=== PATIENT | male | born 1970 ===

== ENCOUNTER 2018-08-29 08:33 | Inpatient (IN) | payer MEDICARE, OTHER ==
--- NOTE | 2018-08-29 08:37 | C.PDOC ---
History Of Present Illness 47 y/o male with PMH of substance abuse, anxiety, chronic pain, presents to the ED c/o worsening anxiety x 2 weeks. Pt does not have a psychiatrist and does not take any medication for his anxiety. Pt is seeking admission today. Pt is tearful on interview, states he has been having daily panic attack secondary to feeling overwhelmed and having a lack of support at home. Last use of heroin, 2 bags snorted yesterday, none today. Currently on a methadone program, last dose yesterday 35mg, supposed to receive 30mg today, but presented to ED instead because he states his doctor is "reducing his dose too quickly and he does not want to use". Pt does not have a pain management doctor. Denies SI, HI, hallucinations, alcohol use, fever, chills, abdominal pain, N/V/D, bowel/bladder incontinence, numbness, paresthesias, weakness, headache, dizziness, vision changes, chest pain, SOB, or any other associated symptoms. Time Seen by Provider: 08/29/18 08:33 Chief Complaint (Nursing): Anxiety Past Medical History Reviewed: Historical Data, Nursing Documentation, Vital Signs - Medical History PMH: Anxiety, Arthritis, Asthma, Back Problems, Depression, Hepatitis (As per pt, hx of Hep C.) Denies: Diabetes, HIV, HTN, Seizures, Sexually Transmitted Disease Surgical History: Back Surgery - [facility] Procedures INDIVID PSYCHOTHERAP NEC (01/02/14) LARYGNOSCOPY AND OTH TRACHEOSCOPY (05/18/13) OTHER GROUP THERAPY (01/02/14) OTHER SKIN & SUBQ I D (05/18/13) PHYSICAL THERAPY NEC (08/04/14) PSYCHIA INTERV/EVAL NEC (03/27/14) Family History: States: Unknown Family Hx - Social History Hx Tobacco Use: Yes Hx Alcohol Use: Yes Hx Substance Use: Yes - Immunization History Hx Tetanus Toxoid Vaccination: Yes Hx Influenza Vaccination: Yes Hx Pneumococcal Vaccination: Yes Review Of Systems Constitutional: Negative for: Fever, Chills Eyes: Negative for: Vision Change ENT: Negative for: Nose Congestion Cardiovascular: Negative for: Chest Pain, Palpitations, Light Headedness Respiratory: Negative for: Cough, Shortness of Breath Gastrointestinal: Negative for: Nausea, Vomiting, Abdominal Pain, Diarrhea, Constipation Musculoskeletal: Positive for: Neck Pain (chronic), Back Pain (chronic), Leg Pain (chronic bilateral knee pain) Skin: Negative for: Rash, Bruising Neurological: Negative for: Weakness, Numbness, Headache, Dizziness Psych: Positive for: Anxiety. Negative for: Depression, Psychosis, Suicidal ideation Physical Exam - Physical Exam Appears: Non-toxic, In Acute Distress, Agitated Skin: Normal Color, Warm, Dry Head: Atraumatic, Normacephalic Eye(s): bilateral: Normal Inspection, PERRL, EOMI Nose: Normal Oral Mucosa: Moist Neck: Normal, Normal ROM, No Midline Cervical Tenderness, No Paracervical Tenderness, Supple Cardiovascular: Rhythm Regular Respiratory: Normal Breath Sounds Gastrointestinal/Abdominal: Soft, No Tenderness Back: Normal Inspection, No Vertebral Tenderness, No Muscle Spasm, No Paraspinal Tenderness Extremity: Normal ROM, Capillary Refill (<2s), No Deformity, No Swelling Extremity: Bilateral: Atraumatic, No Pedal Edema, Normal Color And Temperature, Normal ROM Pulses: Left Radial: Normal, Right Radial: Normal Neurological/Psych: Oriented x3, Normal Speech, Normal Motor, Normal Sensation Gait: Steady (with cane) ED Course And Treatment - Laboratory Results Result Diagrams: 08/29/18 09:54 08/29/18 09:54 Medical Decision Making Medical Decision Making: Initial Plan: * Bloodwork * Alcohol, acetaminophen, and salicylate levels * UA * UDS * Crisis Eval 1045 Labwork reviewed, no significant findings. Patient is medically clear for psychiatric evaluation. 1225 Advised by crisis that patient is to be admitted to the psychiatric floor under Dr. Stewart with the diagnosis of major depressive disorder. Patient made aware of change in disposition. Resting comfortably in stretcher on phone with stable vital signs at this time. Disposition - Disposition Disposition: HOSPITALIZED Disposition Time: 12:30 Condition: GOOD - Clinical Impression Clinical Impression: Major depressive disorder
[2018-08-29 08:38] VITALS: BMI 31.3
[2018-08-29 10:00] LABS: BASO # 0.1 K/uL (0.0-0.2); BASO % 0.7 % (0.0-2.0); EOS # 0.1 K/uL (0.0-0.7); EOS % 0.9 % (0.0-4.0); HEMOGLOBIN 14.4 g/dL (12.0-18.0); LYMPH # 1.9 K/uL (1.0-4.3); MEAN CELL VOLUME 93.8 fL (80.0-94.0); MEAN CORPUSCULAR HGB CONC 34.1 g/dL (33.0-37.0); MEAN PLATELET VOLUME 8.9 fL (7.2-11.7); MONO # 0.6 K/uL (0.0-0.8); MONO % 6.8 % (0.0-10.0); NEUT # 6.7 K/uL (1.8-7.0); NEUT % 71.6 % (50.0-75.0); RBC 4.49 Mil/uL (4.40-5.90); RED CELL DISTRIBUTION WIDTH 13.1 % (11.5-14.5); WHITE BLOOD COUNT 9.4 K/uL (4.8-10.8)
[2018-08-29 10:01] LABS: SQUAMOUS EPITHIAL < 1 /hpf (0-5); URINE BILIRUBIN NEGATIVE (NEGATIVE); URINE BLOOD NEGATIVE (NEGATIVE); URINE CLARITY Clear (Clear); URINE COLOR Yellow (YELLOW); URINE GLUCOSE (UA) NORMAL (Normal); URINE LEUKOCYTE ESTERASE NEG Leu/uL (Negative); URINE PROTEIN NEGATIVE (NEGATIVE); URINE UROBILINOGEN NORMAL mg/dL (0.2-1.0)
[2018-08-29 10:11] LABS: ACETAMINOPHEN < 10.0 ug/mL (10.0-30.0); SALICYLATE < 1.0 mg/dL 1
[2018-08-29 10:24] LABS: BARBITURATES, UR NEGATIVE (NEGATIVE); PHENCYCLIDINE, UR NEGATIVE (NEGATIVE)
[2018-08-29 10:43] LABS: ALB/GLOB RATIO 1.5 (1.0-2.1); ALBUMIN 5.1 g/dL (3.5-5.0); AST/SGOT 34 U/L (17-59); BLOOD UREA NITROGEN 11 mg/dL (9-20); CALCIUM 9.9 mg/dl (8.6-10.4); GFR NON-AFRICAN AMERICAN > 60
[2018-08-29 10:44] LABS: ALT/SGPT 15 U/L (21-72); BENZODIAZEPINES, UR POSITIVE (NEGATIVE); OPIATES, UR POSITIVE (NEGATIVE)
--- NOTE | 2018-08-29 14:53 | PCM.BM ---
<Katie Knutson - Last Filed: 08/29/18 14:50> Treatment Plan Problems - Problems identified on initial assessmt Self Care Deficit Date Initiated: 08/29/18 Time Initiated: 14:52 Assessment reference: NA Status: Active Altered Sleep Patterns Date Initiated: 08/29/18 Time Initiated: 14:52 Assessment reference: NA Status: Active Medication Nonadherence Date Initiated: 08/29/18 Time Initiated: 14:52 Assessment reference: NA Status: Active Treatment assets and liabiliti Patient Assests: adapts well, cooperative, educated, ADL independent, negotiates basic needs, cognitively intact Patient Liabilities: live alone (Lives with friend), substance abuse (Methadone, Opiates, THC), medical problems (Back pain, and Arthritis) - Milieu Protocol Maintain good personal hygiene: daily Encourage regular showers, daily Remind patient to perform daily oral care, daily Assist patient to perform ADL's (Self care) Conduct patient checks and document Observation sheet: Q15 minutes (Safety) Maintain personal safety: every shift Educate patient to report safety concerns to staff, every shift Monitor environment for contraband/sharps Medication safety: Monitor for expected outcome, potential side effects: every shift, Assess barriers to learning: every shift, Assess readiness for medication education: every shift <Modesta Stewart - Last Filed: 08/31/18 10:51> - Diagnosis (1) Bipolar disorder Status: Acute Interventions: 08/31/18 10:50 * Assess/adjust medications daily and /or as needed * See patient on an individual basis 7x/week to assess level of manic behaviors and stability * Discuss risks, benefits, side effects and alternatives of medications * (2) Opioid use disorder, severe, dependence Status: Acute Interventions: 08/31/18 10:51 * Assess 7x/week regarding severity of withdrawal * Educate regarding risks, benefits, side effects and alternatives of medications * Use Motivational Interviewing for abstinence * Use CBT for relapse prevention * Medication management for withdrawal symptoms * Encourage medication assisted treatment * <Jazz Fabian - Last Filed: 08/31/18 14:15> Family Contact Family involvement: Patient does not wish Family/SO involvement Family contact: Patient declines to allow family contact at present - Goals for Treatment Patient goals for treatment: "I want to got to [facility]." Discharge/Continuing Care - Education Needs Education Needs: Patient Medication, Patient Diagnosis/Disease Process, Patient Coping Skills, Patient Placement options, Patient Community resources - Discharge Discharge Criteria: Free of Suicidal thoughts, Free of agitation, Normal sleep pattern, Ability to care for self, No longer exhibiting s/s of withdrawal, Reduction of target symptoms Discharge to:: Home, With Family - Treatment Team Participation Discussed with Family/SO: No Was Patient/Family/SO present at Treatment Team Meeting: Yes
--- NOTE | 2018-08-29 15:14 | PCM.PSYCH ---
Initial Psychiatric Evaluation - Initial Psychiatric Evaluation Type of Admission: Voluntary Legal Status: Capacity Chief Complaint (in patient's own words): I was feeling anxious depressed and suicidal.' History of Present Illness and Precipitating Events: Patient is a 47-year-old male that is , currently homeless, has 5 children ages 29, 28, 27,17 and 10. The 17 and 10-year-old are under the care of their respective mothers. He is currently receiving disability. Patient states that he is very anxious, depressed and suicidal. Patient has a history of anxiety and insomnia that he states have been getting worse lately because he is under a lot of stress. Patient is tearful when interviewing, stating that he has been having daily panic attacks secondary to feeling overwhelmed and having a lack of support from his family. He states that he does not have a psychiatrist and does not take any medication for his anxiety. He also states that he suffers from chronic pain and was seeing a pain management doctor in [place], where he frequently visits and lives for long periods of time. He reports having multiple orthopedic surgeries with rods, plates, and screws inserted. Patient reports that his condition makes him very anxious and restless when he is in pain. Patient has a 20-year history of heroin use. He states that he goes to [facility] for methadone and was started off at 140 mg and is being tapered down 5 mg a day. Last dose yesterday was 35 mg. He also sniffed 2 bags of heroin yesterday stating that his doctor was "reducing his dose too quickly which made him supplement with heroin. He was supposed to receive 30 mg today but states that he did not receive it. He presents to [facility] ED because he is afraid of using heroin again and does not want to relapse. He denies heroin use today. Patient also states that he smokes marijuana every day because it helps with his chronic pain and insomnia. He reports depressed mood, feelings of hopelessness, helplessness and worthlessness. He reports poor sleep and poor appetite. He reports at times irritability and agitation agitation because of chronic pain. However he denies any auditory hallucinations or any paranoia. He also reports withdrawal symptoms from heroin including nausea, vomiting, shakes, headache, cramps and joint pains. Past psychiatric history: Anxiety, insomnia Family Psych History: unknown PMHx: Hep. C, osteoarthritis Meds: methadone Current Medications: Active Medications Generic Name Dose Route Start Last Admin Trade Name Freq PRN Reason Stop Dose Admin Benztropine Mesylate 2 mg 08/29/18 13:03 Cogentin PO Q6 PRN Extra Pyramidal Symptoms Haloperidol 5 mg 08/29/18 13:12 Haldol PO Q8 PRN Moderate Agitation Hydroxyzine HCl 25 mg 08/29/18 13:12 Atarax PO Q6 PRN Anxiety Lorazepam 2 mg 08/29/18 12:58 Ativan PO Q8H PRN Severe Agitation Pneumococcal Polyvalent Vaccine 0.5 ml 08/31/18 10:00 Pneumovax 23 Vaccine IM 08/31/18 10:01 .ONCE ONE Trazodone HCl 50 mg 08/29/18 22:00 Desyrel PO HS JOHN Past Psychiatric History - Past Psychiatric History Previous Treatment History: Inpatient Pertinent Medical Hx (Current Medical&Sleep Prob, Allergies): Allergies Allergy/AdvReac Type Severity Reaction Status Date / Time crab AdvReac SHORTNESS Verified 08/29/18 08:38 OF BREATH No Known Home Med 08/29/18 Review of Systems - Review of Systems All systems: reviewed and no additional remarkable complaints except - Psychiatric Psychiatric: Anxiety, Irritability, Suicidal Ideation Mental Status Examination - Personal Presentation Personal Presentation: Looks stated age - Affect Affect: Constricted, Depressed - Motor Activity Motor Activity: Psychomotor Retardation - Reliability in Providing Information Reliability in Providing Information: Fair - Speech Speech: Organized - Mood Mood: Depressed, Anxious - Formal Thought Process Formal Thought Process: No Impairment - Obsessions/Compulsions Obsessions: No Compulsions: No - Cognitive Functions Orientation: Person, Place, Situation, Time Sensorium: Alert Attention/Concentration: Attentive Abstract Thinking: [place] Estimate of Intelligence: Below average Judgement: Imparied, as evidence by: Poor judgement, Imparied, as evidence by: Lack of insight into illness - Risk Risk: Suicidal, Withdrawal, Diminished functioning - Limitations Limitations: Living alone DSM 5 DX - DSM 5 DSM 5 Diagnosis: Bipolar depressed severe with out psychotic features Opioid use disorder severe Opioid withdrawal Cannabis use disorder moderate - Recommended/Plan of Treatment Treatment Recommendations and Plan of Treatment: Bipolar depressed severe with out psychotic features Opioid use disorder severe Opioid withdrawal Cannabis use disorder moderate CBT Psychoeducation Supportive therapy and group therapy Hydroxyzine for anxiety Methadone taper Neurontin for augmentation Paxil for depression Topamax for mood Withdrawal medications including clonidine/Zofran/Imodium/Tylenol
[2018-08-29] MEDS ORDERED: Aluminum Hydroxide/Magnesium Hydroxide Susp (30 mL) PO PRN (15:18)
[2018-08-29] MEDS ORDERED: Benzocaine/Menthol (Cepacol) Lozenge PO PRN (15:19)
[2018-08-29] MEDS ORDERED: Influenza Vaccine 60 mcg/0.5 mL SYR (4YR UP) IM ONE (15:22)
--- NOTE | 2018-08-30 11:17 | PCM.PYCHPN ---
Psychiatric Progress Note - Psychiatric Progress Note Patient seen today, length of contact: 15 min Patient Chief Complaint: I was feeling anxious depressed and suicidal.' Problems Identified/Issues Discussed: Patient seen and evaluated, chart reviewed and discussed with the nurse. Pt reports depressed mood, and reports feelings of hopelessness and helplessness. He remained isolated and withdrawn, and confined to his room. Patient reports of withdrawal symptoms including abdominal cramps, anxiety, headaches and sweating. He denies any auditory hallucinations, visual hallucinations, or any paranoia. Patient is compliant with medications and denies any side effects. Support and psychoeducation given. Medication Change: Yes Medical Record Reviewed: Yes Mental Status Examination - Cognitive Function Orientation: Person, Place, Situation, Time Memory: Intact Attention: WNL Concentration: Poor Association: WNL Fund of Knowledge: Poor - Mood Mood: Depressed, Anxious - Affect Affect: Constricted, Depressed - Speech Speech: Soft - Formal Thought Process Formal Thought Process: No Impairment - Suicidal Ideation Suicidal Ideation: No - Homicidal Ideation Homicidal Ideation: No Goal/Treatment Plan - Goal/Treatment Plan Need for Continued Stay: Remain at risks for inpatient hospitalization Progress Toward Problem(s) and Goals/Treatment Plan: Bipolar depressed severe with out psychotic features Opioid use disorder severe Opioid withdrawal Cannabis use disorder moderate CBT Psychoeducation Supportive therapy and group therapy Hydroxyzine for anxiety Methadone taper Neurontin for augmentation Paxil for depression Topamax for mood Withdrawal medications including clonidine/Zofran/Imodium/Tylenol - Smoking Cessation Smoking Cessation Initiated: No
[2018-08-31] MEDS ORDERED: QUEtiapine 50 mg XR Tab PO ONE (01:30)
[2018-08-31 06:07] VITALS: O2SAT 96
[2018-08-31] MEDS ORDERED: Pneumococcal 23-Valent Vaccine IM ONE (10:00)
--- NOTE | 2018-08-31 23:48 | PCM.PYCHPN ---
Psychiatric Progress Note - Psychiatric Progress Note Patient seen today, length of contact: 15 min Patient Chief Complaint: I m withdrawing.' Problems Identified/Issues Discussed: Patient seen and evaluated, chart reviewed and discussed with the nurse. Patient reports of withdrawal symptoms including abdominal cramps, anxiety, headaches and sweating. He still reports depressed mood, but reports some improvement in the feelings of hopelessness and helplessness. He remained isolated and withdrawn, but started coming out of his room. He denies any auditory hallucinations, visual hallucinations, or any paranoia. Patient is compliant with medications and denies any side effects. Support and psychoeducation given. Medication Change: Yes Medical Record Reviewed: Yes Mental Status Examination - Cognitive Function Orientation: Person, Place, Situation, Time Memory: Intact Attention: WNL Concentration: Poor Association: WNL Fund of Knowledge: Poor - Mood Mood: Depressed, Anxious - Affect Affect: Constricted, Depressed - Speech Speech: Soft - Formal Thought Process Formal Thought Process: No Impairment - Suicidal Ideation Suicidal Ideation: No - Homicidal Ideation Homicidal Ideation: No Goal/Treatment Plan - Goal/Treatment Plan Need for Continued Stay: Remain at risks for inpatient hospitalization Progress Toward Problem(s) and Goals/Treatment Plan: Bipolar depressed severe with out psychotic features Opioid use disorder severe Opioid withdrawal Cannabis use disorder moderate CBT Psychoeducation Supportive therapy and group therapy Hydroxyzine for anxiety Methadone taper Neurontin for augmentation Paxil for depression Topamax for mood Withdrawal medications including clonidine/Zofran/Imodium/Tylenol
[2018-09-02 08:03] VITALS: BP 153/84; PULSE 98; RESP 20; TEMP 97.4
== END 2018-09-02 11:09 | disposition left against medical advice (07) | DRG 885 ==
LOC: C.ER 08:33 → C.5E 12:34
PROVIDERS: ADMIT Psychiatry & Neurology Psychiatry; ATTEND Psychiatry & Neurology Psychiatry
PROC: GZHZZZZ Group Psychotherapy (ICD-10-PCS; principal; 2018-08-29)
PROC: GZ56ZZZ Individual Psychotherapy, Supportive (ICD-10-PCS; 2018-08-29)
DX: F31.4 Bipolar disorder, current episode depressed, severe, without psychotic features (principal); F11.23 Opioid dependence with withdrawal; G47.00 Insomnia, unspecified; G89.29 Other chronic pain; J45.909 Unspecified asthma, uncomplicated; Z59.0 Homelessness; F12.10 Cannabis abuse, uncomplicated; F41.0 Panic disorder [episodic paroxysmal anxiety]; Z87.891 Personal history of nicotine dependence

== ENCOUNTER 2018-11-17 19:13 | Emergency (ER) | payer MEDICARE ==
[2018-11-17 19:13] VITALS: BMI 31.3
[2018-11-17 19:29] VITALS: BP 117/62; PULSE 84; RESP 20; TEMP 99.1; O2SAT 97
--- NOTE | 2018-11-17 20:52 | C.PDOC ---
History Of Present Illness 47 year old male presents to the emergency department via ambulance for public intoxication. Patient was seen earlier today at [facility] and discharged at 2PM. Patient noted to have bizarre behavior in public. Patient denies substance abuse. Time Seen by Provider: 11/17/18 19:44 Chief Complaint (Nursing): Medical Clearance History Per: Patient History/Exam Limitations: no limitations Onset/Duration Of Symptoms: Hrs Current Symptoms Are (Timing): Still Present Past Medical History Reviewed: Historical Data, Nursing Documentation, Vital Signs Vital Signs: Last Vital Signs Temp 99.1 F 11/17/18 19:28 Pulse 84 11/17/18 19:28 Resp 20 11/17/18 19:28 BP 117/62 11/17/18 19:28 Pulse Ox 97 11/17/18 19:28 Primary Care Provider: FAMILY PROVIDER,NO - Medical History PMH: Anxiety, Arthritis, Asthma, Back Problems, Depression, Hepatitis (As per pt, hx of Hep C.) Denies: Diabetes, HIV, HTN, Seizures, Sexually Transmitted Disease Surgical History: Back Surgery - [facility] Procedures GROUP PSYCHOTHERAPY (08/29/18) INDIVID PSYCHOTHERAP NEC (01/02/14) INDIVIDUAL PSYCHOTHERAPY, SUPPORTIVE (08/29/18) LARYGNOSCOPY AND OTH TRACHEOSCOPY (05/18/13) OTHER GROUP THERAPY (01/02/14) OTHER SKIN & SUBQ I D (05/18/13) PHYSICAL THERAPY NEC (08/04/14) PSYCHIA INTERV/EVAL NEC (03/27/14) Family History: States: No Known Family Hx - Social History Hx Tobacco Use: Yes Hx Alcohol Use: Yes Hx Substance Use: Yes - Immunization History Hx Tetanus Toxoid Vaccination: Yes Hx Influenza Vaccination: Yes Hx Pneumococcal Vaccination: Yes Review Of Systems Except As Marked, All Systems Reviewed And Found Negative. Constitutional: Negative for: Fever, Chills Respiratory: Negative for: Cough Gastrointestinal: Negative for: Nausea, Vomiting, Abdominal Pain Neurological: Negative for: Weakness, Numbness Physical Exam - Physical Exam Appears: Non-toxic, No Acute Distress, Other (obese white male, hypersomnilent) Skin: Normal Color, Warm, Dry Head: Atraumatic, Normacephalic Eye(s): bilateral: PERRL, EOMI, Other (pinpoint pupils) Nose: Normal Oral Mucosa: Moist Neck: Normal, Supple Chest: Symmetrical, No Tenderness Cardiovascular: Rhythm Regular, No Murmur Respiratory: Normal Breath Sounds, No Rales, No Rhonchi, No Wheezing Gastrointestinal/Abdominal: Soft, No Tenderness, No Guarding, No Rebound Extremity: Normal ROM Neurological/Psych: Oriented x3, Normal Speech, Normal Cognition ED Course And Treatment O2 Sat by Pulse Oximetry: 97 (RA) Pulse Ox Interpretation: Normal Reevaluation Time: 20:15 Reassessment Condition: Improved (walking, stable gait, wants immediate d/c to street) Medical Decision Making Medical Decision Making: probable narcotics abuse seen @ [facility] ED earlier today and d/c to street @ 2PM Plan: Glucose POC Disposition Doctor Will See Patient In The: Office Counseled Patient/Family Regarding: Studies Performed, Diagnosis - Disposition Referrals: Alcoholics Anonymous [Outside] [facility] [Outside] [facility] [Outside] [facility] [Outside] [facility] [Outside] Disposition: HOME/ ROUTINE Disposition Time: 20:15 Condition: GOOD Instructions: Drug Abuse and Drug Addiction (DC) Forms: [facility] (Greek) - Clinical Impression Clinical Impression: Substance abuse - Scribe Statement The provider has reviewed the documentation as recorded by the Scribe (Jarad Lebron) Provider Attestation: All medical record entries made by the Scribe were at my direction and personally dictated by me. I have reviewed the chart and agree that the record accurately reflects my personal performance of the history, physical exam, medical decision making, and the department course for this patient. I have also personally directed, reviewed, and agree with the discharge instructions and disposition.
== END 2018-11-17 20:54 | disposition home or self-care (01) ==
LOC: C.ER 19:13
DX: F19.10 Other psychoactive substance abuse, uncomplicated (principal); Z72.0 Tobacco use